=== PATIENT | female | born 1970 | race Caucasian/White ===

== ENCOUNTER → 2017-03-23 | Outpatient (CLI) | payer OTHER | END | disposition home or self-care (01) | LOC: MAMMO 12:48 → EDBD 13:00 | PROVIDERS: ATTEND Obstetrics & Gynecology | DX: Z12.31 Encounter for screening mammogram for malignant neoplasm of breast (principal); Z80.3 Family history of malignant neoplasm of breast | CPT/HCPCS: G0202; 77067 ==

== ENCOUNTER → 2017-04-06 | Outpatient (CLI) | payer OTHER ==
--- NOTE | 2017-04-06 11:56 | RAD ---
DATE: 04/06/2017 EXAM: DIGITAL DIAGNOSTIC BILATERAL HISTORY: Suspicious screening study COMPARISON: 03/23/2017 This study was interpreted with the benefit of Computerized Aided Detection (CAD). The breast parenchyma is dense, which could reduce the sensitivity of mammography. Breast parenchyma level density D. FINDINGS: Additional straight mediolateral and spot compression views of both breasts were obtained. There are microcalcifications throughout both breasts. There is no significant layering of these calcifications on the straight mediolateral views. There is some occasional clustering bilaterally. No highly suspicious cluster is delineated. The overall pattern is most compatible with adenosis. IMPRESSION: Probably benign microcalcifications. Follow-up bilateral mammograms in 6 months and then at yearly intervals is suggested to established stability. BI-RADS CATEGORY: 3 PROBABLY BENIGN FINDING(S)-SHORT INTERVAL FOLLOW-UP SUGGESTED RECOMMENDED FOLLOW-UP: 6M 6 MONTH FOLLOW-UP PQRS compliance statement: Patient information was entered into a reminder system with a target due date for the next mammogram. Mammography is a sensitive method for finding small breast cancers, but it does not detect them all and is not a substitute for careful clinical examination. A negative mammogram does not negate a clinically suspicious finding and should not result in delay in biopsying a clinically suspicious abnormality. "Our facility is accredited by the [employer] Mammography [employer]."
== END | disposition home or self-care (01) ==
LOC: MAMMO 11:06
PROVIDERS: ATTEND Obstetrics & Gynecology
DX: R92.0 Mammographic microcalcification found on diagnostic imaging of breast (principal); Z85.3 Personal history of malignant neoplasm of breast
CPT/HCPCS: G0204; 77066

== ENCOUNTER → 2017-06-08 | Outpatient (CLI) | payer OTHER ==
--- NOTE | 2017-06-08 11:04 | RAD ---
Examination: Limited ultrasound left breast History: History of left breast pain in the retroareolar region Comparison: Mammogram from 04/06/2017. Findings: Targeted ultrasound of the left breast mammogram in the retroareolar region demonstrates few prominent ducts without obvious mass. Impression: Probably benign findings BI-RADS Category 3. Patient is coming back in 4 months for her bilateral breast mammogram for microcalcifications.
== END | disposition home or self-care (01) ==
LOC: US 10:11
PROVIDERS: ATTEND Nurse Practitioner Adult Health
DX: Q83.9 Congenital malformation of breast, unspecified (principal)
CPT/HCPCS: 76641

== ENCOUNTER → 2018-03-15 | Outpatient (CLI) | payer OTHER ==
--- NOTE | 2018-03-15 15:15 | RAD ---
DATE: 2017 EXAM: DIGITAL DIAGNOSTIC BILATERAL HISTORY: Microcalcifications. COMPARISON: Prior examination from 04/06/2017, 03/23/2017 This study was interpreted with the benefit of Computerized Aided Detection (CAD). The breast parenchyma is dense, which could reduce the sensitivity of mammography. Breast parenchyma level density D. FINDINGS: Bilateral CC and MLO views of the breasts were performed. Right breast: Punctate, circumscribed microcalcifications are identified in a diffuse distribution. No clusters or suspicious medical stations are identified. There are no suspicious masses or areas of architectural distortion. Left breast: Punctate, circumscribed microcalcifications are identified in a diffuse distribution. No clusters or suspicious medical stations are identified. There are no suspicious masses or areas of architectural distortion. Findings are stable from prior mammogram. IMPRESSION: Benign microcalcifications are identified in the bilateral breasts. BI-RADS CATEGORY: 2 BENIGN FINDING(S) RECOMMENDED FOLLOW-UP: 12M 12 MONTH FOLLOW-UP PQRS compliance statement: Patient information was entered into a reminder system with a target due date 03/15/2019 for the next mammogram. Mammography is a sensitive method for finding small breast cancers, but it does not detect them all and is not a substitute for careful clinical examination. A negative mammogram does not negate a clinically suspicious finding and should not result in delay in biopsying a clinically suspicious abnormality. "Our facility is accredited by the [employer] Mammography [employer]."
== END | disposition home or self-care (01) ==
LOC: MAMMO 13:43
PROVIDERS: ATTEND Nurse Practitioner Adult Health
DX: R92.8 Other abnormal and inconclusive findings on diagnostic imaging of breast (principal); Z85.3 Personal history of malignant neoplasm of breast
CPT/HCPCS: 77066